=== PATIENT | male | born 1960 | race Caucasian/White ===

== ENCOUNTER 2018-01-22 09:44 | Emergency (ER) | payer BC ==
[2018-01-22 10:18] VITALS: BP 138/90
--- NOTE | 2018-01-22 10:26 | EDM.PDOC ---
ED HPI GENERAL MEDICAL PROBLEM - General Chief Complaint: Lower Extremity Injury/Pain Stated Complaint: LEG SWOLLEN AND RED SENT BY CHARLES Time Seen by Provider: 01/22/18 10:11 Source of Information: Reports: Patient History Limitations: Reports: No Limitations - History of Present Illness INITIAL COMMENTS - FREE TEXT/NARRATIVE: The patient presents with redness and swelling to his left leg. He noticed this yesterday. He also has a fever or 101 and he has not been feeling good today. He has this happen 1 time per year. He will need to go on antibiotics and it goes away. He has never been told he had MRSA. He also has a lesion to his lower abdomen. He has no cough, congestion, runny nose, chest pain, shortness of breath, abdominal pain, nausea or vomiting. He has no history of a DVT or PE. Onset: Gradual Duration: Day(s): (Yesterday) Location: Reports: Abdomen, Lower Extremity, Left Quality: Reports: Sharp Severity: Moderate Improves with: Reports: None Worsens with: Reports: None Associated Symptoms: Reports: Fever/Chills. Denies: Chest Pain, Cough, Headaches, Nausea/Vomiting, Shortness of Breath Left Lower Leg Pain Score (Numeric/FACES): 5 - Related Data Allergies Allergy/AdvReac Type Severity Reaction Status Date / Time acetaminophen Allergy Hives Verified 01/22/18 10:21 [From Excedrin Migraine] aspirin Allergy Hives Verified 01/22/18 10:21 [From Excedrin Migraine] caffeine Allergy Hives Verified 01/22/18 10:21 [From Excedrin Migraine] Sulfa (Sulfonamide Allergy Hives Verified 01/22/18 10:20 Antibiotics) Home Meds: Home Meds Allopurinol [Zyloprim] 100 mg PO DAILY 01/22/18 [History] Allopurinol [Zyloprim] 200 mg PO DAILY 01/22/18 [History] Cephalexin [Keflex] 500 mg PO Q6HR #28 capsule 01/22/18 [Rx] Ibuprofen 600 mg PO Q6H PRN 01/22/18 [History] traMADol [Ultram] 50 mg PO Q4H PRN 01/22/18 [History] Review of Systems - Review of Systems Review Of Systems: See Below Constitutional: Reports: Chills, Fever Eyes: Reports: No Symptoms Ears: Reports: No Symptoms Nose: Reports: No Symptoms Mouth/Throat: Reports: No Symptoms Respiratory: Reports: No Symptoms Cardiovascular: Reports: No Symptoms GI/Abdominal: Reports: Other (Lesion on his abdomen). Denies: Abdominal Pain, Diarrhea, Nausea, Vomiting Genitourinary: Reports: No Symptoms Musculoskeletal: Reports: Leg Pain ED EXAM, GENERAL - Physical Exam Exam: See Below Exam Limited By: No Limitations General Appearance: Alert, No Apparent Distress Ears: Normal External Exam Nose: Normal Inspection Head: Atraumatic, Normocephalic Neck: Normal Inspection Respiratory/Chest: No Respiratory Distress, Lungs Clear, Normal Breath Sounds Cardiovascular: Regular Rate, Rhythm, No Edema, No Murmur GI/Abdominal: Soft, Non-Tender, No Organomegaly, No Mass, Other (Area of erythema to the right lower abdomen) Extremities: Other (Moderate erythema and edema to the left leg. Good sensation and pulses distally.) Course - Vital Signs Last Recorded V/S: Last Vital Signs Temp 101 F H 01/22/18 10:00 Pulse 97 01/22/18 10:00 Resp 16 01/22/18 10:00 BP 138/90 01/22/18 10:00 Pulse Ox 93 L 01/22/18 10:00 - Re-Assessments/Exams Free Text/Narrative Re-Assessment/Exam: 01/22/18 10:26 He has cellulitis to his left leg and abdomen. I do not suspect a DVT. I will give him a shot of rocephin and start him on some keflex. Departure - Departure Time of Disposition: 10:30 Disposition: Home, Self-Care 01 Condition: Good Clinical Impression: Cellulitis Qualifiers: Site of cellulitis: extremity Site of cellulitis of extremity: lower extremity Laterality: left Qualified Code(s): L03.116 - Cellulitis of left lower limb - Discharge Information Prescriptions: Cephalexin [Keflex] 500 mg PO Q6HR #28 capsule Referrals: Colt Brock Jr, MD [Primary Care Provider] - 1 Week Additional Instructions: Starting tomorrow, take keflex 1 pill every 6 hours for 7 days. Put warm compresses on your leg and abdomen 3 times per day for 5 days. Take motrin or tylenol for any fever. Please return if you are worse.
[2018-01-22] MEDS ORDERED: cefTRIAXone 1 GM, Lidocaine 1% 2.1 ML IM SCH ×2 (10:30)
== END 2018-01-22 11:03 | disposition home or self-care (01) ==
LOC: JD.ED 09:44
DX: L03.116 Cellulitis of left lower limb (principal); Z88.6 Allergy status to analgesic agent; Z88.2 Allergy status to sulfonamides; Z91.018 Allergy to other foods; Z79.899 Other long term (current) drug therapy
CPT/HCPCS: 96372; 99283; J0696

== ENCOUNTER 2021-08-24 15:48 | Emergency (ER) | payer BC, MEDICAID ==
--- NOTE | 2021-08-24 16:46 | EDM.PDOC ---
ED HPI GENERAL MEDICAL PROBLEM - General Chief Complaint: Respiratory Problem Stated Complaint: poss blood clot Time Seen by Provider: 08/24/21 16:11 Source of Information: Reports: Patient, Provider History Limitations: Reports: No Limitations - History of Present Illness INITIAL COMMENTS - FREE TEXT/NARRATIVE: 61-year-old male presents the emergency department from [facility] today. Patient's provider did call to give a report and states that the patient was seen on a follow-up visit for Covid today. She states that he looked well and says he feels well however he did have Covid 2-1/2 weeks ago. At his clinic visit he was tachycardic in the low 100s and O2 sats were 87% on room air. Lab studies were completed which revealed WBC of 4.78, hemoglobin 15.5, hematocrit 46.1, platelet count 202, glucose 106, BUN 15, creatinine 1.04, sodium 139, potassium 3.7, anion gap 15 and a D-dimer of 1.27. Provider feels that the patient needs to be worked up for a PE and have a CT angiogram of the lungs completed however she is unable to do this at her clinic. - Related Data Allergies Allergy/AdvReac Type Severity Reaction Status Date / Time acetaminophen Allergy Hives Verified 08/24/21 17:59 [From Excedrin Migraine] aspirin Allergy Hives Verified 08/24/21 17:59 [From Excedrin Migraine] Sulfa (Sulfonamide Allergy Hives Verified 08/24/21 17:59 Antibiotics) Home Meds: Home Meds Ibuprofen 600 mg PO Q6H PRN 01/22/18 [History] allopurinoL [Zyloprim] 0 mg PO DAILY 01/22/18 [History] traMADol [Ultram] 50 mg PO Q4H PRN 01/22/18 [History] Adalimumab [Humira(Cf)] 40 mg SQ ASDIRECTED 08/24/21 [History] Past Medical History Respiratory History: Reports: Other (See Below) Other Respiratory History: Patient states that he has a "bad left lung". He states the doctors almost took it out one time. 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 Gastrointestinal History: Reports: Other (See Below) Other Gastrointestinal History: patient states he had to be cut open to remove a chicken bone. Neurological History: Reports: Migraines Endocrine/Metabolic History: Reports: Obesity/BMI 30+ Dermatologic History: Reports: Cellulitis, Eczema, Psoriasis - Past Surgical History Cardiovascular Surgical History: Reports: Varicose GI Surgical History: Reports: Hernia Repair/Other Musculoskeletal Surgical History: Reports: Hip Replacement Social & Family History - Family History Family Medical History: No Pertinent Family History - Caffeine Use Caffeine Use: Reports: Coffee ED ROS GENERAL - Review of Systems Review Of Systems: Comprehensive ROS is negative, except as noted in HPI. ED EXAM, GENERAL - Physical Exam Exam: See Below Exam Limited By: No Limitations General Appearance: Alert, WD/WN, No Apparent Distress Ears: Normal External Exam, Hearing Grossly Normal Nose: Normal Inspection Throat/Mouth: Normal Inspection, Normal Lips, Normal Voice, No Airway Compromise Head: Atraumatic Neck: Normal Inspection, Supple Respiratory/Chest: No Respiratory Distress, Lungs Clear, Normal Breath Sounds, No Accessory Muscle Use, Chest Non-Tender Cardiovascular: Normal Peripheral Pulses, Regular Rate, Rhythm, No Edema, No Murmur Peripheral Pulses: 2+: Radial (L), Radial (R) GI/Abdominal: Normal Bowel Sounds, Soft, Non-Tender, No Distention (Male) Exam: Deferred Rectal (Males) Exam: Deferred Back Exam: Normal Inspection Extremities: Normal Inspection Neurological: Alert, Oriented, Normal Cognition Psychiatric: Normal Affect, Normal Mood Skin Exam: Warm, Dry, Intact, Normal Color, No Rash Lymphatic: No Adenopathy Course - Vital Signs Text/Narrative:: Stated above, patient presents from [facility]. Per his primary providers request to have a CTA performed on the patient. Physical exam is essentially unremarkable however patient's O2 sats are 88 to 90% on room air. H e is slightly tachycardic 91 bpm. He denies any complaints. He states he is not short of breath, having chest pain or any palpitations. His lung sounds are clear to auscultation. Will obtain a CT of the lungs. Last Recorded V/S: Last Vital Signs Temp 98.6 F 08/24/21 16:14 Pulse 91 08/24/21 16:14 Resp 20 08/24/21 16:14 BP 145/96 H 08/24/21 16:14 Pulse Ox 89 L 08/24/21 16:14 - Orders/Labs/Meds Meds: Medications Discontinued Medications Generic Name Dose Route Start Last Admin Trade Name Freq PRN Reason Stop Dose Admin Sodium Chloride 100 mls @ 60 mls/min 08/24/21 17:15 08/24/21 17:30 Normal Saline IV 08/24/21 19:00 60 mls/min ASDIRECTED ANNA Administration Iopamidol 100 ml 08/24/21 17:02 08/24/21 17:30 Iopamidol 755 Mg/Ml 100 Ml Bottle IVPUSH 08/24/21 17:03 100 ml ONETIME ONE Administration Sodium Chloride 10 ml 08/24/21 17:02 08/24/21 17:31 Sodium Chloride 0.9% 10 Ml Sdv FLUSH 08/24/21 17:03 10 ml ONETIME ONE Administration - Re-Assessments/Exams Free Text/Narrative Re-Assessment/Exam: 08/24/21 17:[address] of the chest: Pulmonary arteries are fairly well opacified. No evidence of filling defects are seen within the pulmonary arteries to indicate pulmonary embolism. Thoracic aorta shows no aneurysm. Mediastinum shows no adenopathy. Slight coronary artery calcification is seen. No pericardial thickening is noted. Visualized upper abdominal structures show nothing acute. Lungs are clear. No acute parenchymal changes seen. Bone window settings were reviewed which show scattered to space narrowing and endplate spurring within the spine. There is no acute osseous finding being seen. Impression: 1. No findings of pulmonary embolism. 2. Other findings believed to be chronic as noted above. 3. Nothing acute is seen on CT study of the chest. 08/24/21 18:22 Will be discharged home with recommendations that he follow-up with his primary care provider. Departure - Departure Time of Disposition: 18:22 Disposition: Home, Self-Care 01 Condition: Good Clinical Impression: Elevated d-dimer - Discharge Information Referrals: Maeve Ardon NP [Primary Care Provider] - Forms: ED Department Discharge Additional Instructions: You were seen in the emergency department today after your regular doctor recommended that you be evaluated for potentially having a blood clot in your lungs. CT scan of your lungs was completed and there is no sign of a blood clot. Recommend that you follow-up with your regular doctor should you become short of breath or have any heart palpitations or at your next scheduled appointment. Sepsis Event Note (ED) - Evaluation Sepsis Screening Result: No Definite Risk - Focused Exam Vital Signs: Vital Signs Temp Pulse Resp BP Pulse Ox 08/24/21 16:14 98.6 F 91 20 145/96 H 89 L
[2021-08-24] MEDS ORDERED: Sodium Chloride 0.9% 10 ML SDV FLUSH ONE (17:02)
[2021-08-24] MEDS ORDERED: Iopamidol 755 Mg/ML 100 ML Bottle IVPUSH ONE (17:02)
[2021-08-24] MEDS ORDERED: Sodium Chloride 0.9% 100 ML IV SCH (17:15)
--- NOTE | 2021-08-24 17:47 | CT ---
CT chest Technique: Multiple axial sections through the chest were obtained. Intravenous contrast was utilized. Study has been performed as a pulmonary angiogram protocol. Comparison: Prior chest x-ray of 09/30/13. Findings: Pulmonary arteries are fairly well opacified. No evidence of filling defects are seen within the pulmonary arteries to indicate pulmonary embolism. Thoracic aorta shows no aneurysm. Mediastinum shows no adenopathy. Slight coronary artery calcification is seen. No pericardial thickening is noted. Visualized upper abdominal structures show nothing acute. Lungs are clear. No acute parenchymal change is seen. Bone window settings were reviewed which show scattered disc space narrowing and endplate spurring within the spine. There is no acute osseous finding being seen. Impression: 1. No findings of pulmonary embolism. 2. Other findings believed to be chronic as noted above. 3. Nothing acute is seen on CT study of the chest. Diagnostic code #2
[2021-08-24 19:35] VITALS: BP 116/88; PULSE 100
== END 2021-08-24 18:50 | disposition home or self-care (01) ==
LOC: JD.ED 15:48
DX: R79.89 Other specified abnormal findings of blood chemistry (principal); E66.9 Obesity, unspecified; Z79.899 Other long term (current) drug therapy; Z88.2 Allergy status to sulfonamides; Z88.8 Allergy status to other drugs, medicaments and biological substances; Z68.42 Body mass index [BMI] 45.0-49.9, adult
CPT/HCPCS: 71275; 99285; Q9967

== ENCOUNTER 2022-09-08 10:20 | Emergency (ER) | payer MEDICARE, MEDICAID ==
[2022-09-08 10:35] VITALS: BP 109/60; PULSE 83
[2022-09-08] MEDS ORDERED: fentaNYL 100 MCG/2 ML SDV IVPUSH ONE ×2 (10:49→12:38)
[2022-09-08] MEDS ORDERED: Ketorolac 30 MG/ML SDV IVPUSH ONE ×2 (13:14→19:21)
[2022-09-08] MEDS ORDERED: Sodium Chloride 0.9% 10 ML Syringe FLUSH PRN (13:39)
[2022-09-08] MEDS ORDERED: Iopamidol 755 Mg/ML 100 ML Bottle IVPUSH ONE (13:39)
[2022-09-08] MEDS ORDERED: Sodium Chloride 0.9% 100 ML IV SCH (13:45)
[2022-09-08] MEDS ORDERED: predniSONE 20 MG Tab PO ONE (19:26)
== END 2022-09-08 20:30 | disposition home or self-care (01) ==
LOC: JD.ED 10:20
DX: M79.662 Pain in left lower leg (principal); F32.A Depression, unspecified; E66.9 Obesity, unspecified; Z68.43 Body mass index [BMI] 50.0-59.9, adult; Z88.6 Allergy status to analgesic agent; Z88.2 Allergy status to sulfonamides; Z88.8 Allergy status to other drugs, medicaments and biological substances; Z79.899 Other long term (current) drug therapy
CPT/HCPCS: 36415; 73701; 80053; 82553; 83605; 85025; 85610; 85730; 86140; 93971; 96374; 96375; 96376; 99284; J1885; J3010; J3490; J7512; Q9967